=== PATIENT | male | born 1960 | race Caucasian/White ===

== ENCOUNTER 2017-10-23 15:18 | Emergency (ER) | payer OTHER ==
[~2017-10-23] VITALS: Ht 165.1 cm; Wt 65.8 kg
[~2017-10-23 15:18] MED LIST: CIPRO500 MG PO; FLAG500 PO; FLEXERIL10 MG PO; PERCOCET 325 MG1 TA2 PO
[2017-10-23] MEDS ORDERED: PREDNISONE10 M2 PO (16:58)
--- NOTE | 2017-10-23 16:59 | ED SKIN/ALLERGY COMPLAINT ---
History of Present Illness General Chief Complaint: Skin Rash/ Abcess Stated Complaint: POISON SIMONE Source: patient Exam Limitations: no limitations Vital Signs & Intake/Output Vital Signs & Intake/Output Vital Signs Date Time Temp Pulse Resp B/P B/P Pulse O2 O2 Flow FiO2 Mean Ox Delivery Rate 10/23 1706 97.1 95 15 150/85 99 Room Air Room Air 10/23 1526 97.1 102 20 153/89 97 Room Air Allergies Coded Allergies: MDX - PCN (penicillin) (PCN (PENICILLIN)) (UNKNOWN 01/06/12) Reconcile Medications Ciprofloxacin Hydrochloride (Cipro) 500 MG TAB 1 TAB PO BID DIVERTICULITIS CYCLOBENZAPRINE HCL (Flexeril) 10 MG TABLET 1 TAB PO TID MUSCLE RELAXATION Metronidazole (Flagyl) 500 MG TAB 500 MG PO TID DIVERTICULITIS OXYCODONE HCL/ACETAMINOPHEN (Percocet 5-325 MG Tablet) 325 MG/5 MG TAB 1-2 TAB PO Q4-6 PRN PRN PAIN Prednisone 10 MG TABLET 1 DOSE PO ONCE DAILY DERMATIITS 5 TABS X 2 DAYS 4 TABS X 2 DAYS 3 TABS X 2 DAYS 2 TABS X 2 DAYS 1 TAB X 2 DAYS Triage Note: PT TO ED C/O POISON SIMONE SINCE MONDAY. STATES IT IS ON B/L ARMS, NECK AND WAIST. HAS BEEN USING CALAMINE LOTION WITH SOME RELIEF. Triage Nurses Notes Reviewed? yes Onset: Abrupt Duration: day(s): (2), constant, continues in ED, getting worse Timing: recent history Severity: moderate, severe Location: generalized Possible Factors: exposure to allergen No Modifying Factors: none Associated Symptoms: rash HPI: 57-year-old male past medical history of hypertension presents for evaluation of a itchy erythematous rash. The rash is located diffusely in the arms or legs and trunk. It is very itchy. Patient states he was working outside with the rash started. Feels like similar episodes of poison simone. He denies any trouble swallowing trouble breathing or swelling of the lips tongue or throat. No history of anaphylaxis. No fevers or discharge. He's been putting on calamine lotion with some improvement. Past History Travel History Traveled to [place] past 21 day No Medical History Any Pertinent Medical History? see below for history Neurological: NONE EENT: NONE Cardiovascular: hypertension, RBBB Respiratory: NONE Gastrointestinal: NONE Hepatic: NONE Renal: NONE Musculoskeletal: NONE Psychiatric: NONE Endocrine: NONE Blood Disorders: NONE Cancer(s): NONE CHALKER SOLES/Reproductive: NONE Surgical History Surgical History: appendectomy, FATTY TUMOR BACK Psychosocial History What is your primary language Czech Tobacco Use: Quit >30 days ago ETOH Use: denies use Illicit Drug Use: denies illicit drug use Family History Hx Contributory? No Review of Systems Review of Systems Constitutional: Reports: no symptoms. EENTM: Reports: no symptoms. Respiratory: Reports: no symptoms. Cardiovascular: Reports: no symptoms. GI: Reports: no symptoms. Genitourinary: Reports: no symptoms. Musculoskeletal: Reports: no symptoms. Skin: Reports: rash. Neurological/Psychological: Reports: no symptoms. Hematologic/Endocrine: Reports: no symptoms. Immunologic/Allergic: Reports: no symptoms. All Other Systems: Reviewed and Negative Physical Exam Physical Exam General Appearance: well developed/nourished, no apparent distress, alert, awake Head: atraumatic, normal appearance Eyes: Bilateral: normal appearance, EOMI. Ears, Nose, Throat: normal pharynx, normal ENT inspection, hearing grossly normal Neck: normal inspection, supple, full range of motion Respiratory: normal breath sounds, chest non-tender Cardiovascular: regular rate/rhythm, normal peripheral pulses Peripheral Pulses: 2+ radial (R), 2+ radial (L) Gastrointestinal: soft, non-tender Back: normal inspection, normal range of motion Extremities: normal inspection, normal range of motion, no edema Neurologic/Psych: no motor/sensory deficits, awake, alert, oriented x 3, normal gait, normal mood/affect Skin: intact, normal color, warm/dry Skin Problem Location: upper extremities, torso, lower extremities Skin Problem Character: THERE ARE MULTIPLE ERYTHEMATOUS PAPULAR LESIONS IN A LINEAR DISTRIBUTION LOCATED DIFFUSELY ON THE BILATERAL UPPER AND LOWER EXTREMITIES TRUNK AND NECK. tHERE IS NO UNDERLYING ERYTHEMA OR PURULENT DISCHARGE. sOME weeping present. nO PAIN TO PALPATION Lymphatic: no anterior cervical wilfredo Progress Differential Diagnosis: abscess/cellulitis, allergic reaction, anaphylaxis, contact dermatitis, drug reaction, erythema multiforme, piyriasis rosea, scarlet fever, shingles, toxic shock syndrome, urticaria Plan of Care: Patient seen and evaluated. He appears to have contact dermatitis from poison simone. No evidence of anaphylaxis. Patient will be covered with prednisone. Also advised continuing calamine lotion Benadryl as needed. Discussed return precautions including signs of infection patient agrees the plan. Departure Departure Disposition: HOME OR SELF CARE Condition: Stable Clinical Impression Primary Impression: Rhus dermatitis Referrals: Juan J Betancur MD (PCP/Family) Additional Instructions: Keep YOUR skin clean and dry. Take prednisone as directed for the full course. Benadryl for itching. Continue to apply topical calamine lotion. Follow-up with her primary care doctor. Monitor symptoms and return with any concerns. Departure Forms: Customer Survey General Discharge Information Prescriptions: Current Visit Scripts Prednisone 1 DOSE PO ONCE DAILY #1 DP 5 TABS X 2 DAYS 4 TABS X 2 DAYS 3 TABS X 2 DAYS 2 TABS X 2 DAYS 1 TAB X 2 DAYS
[2017-10-23 17:06] VITALS: BP 150/85
== END 2017-10-23 17:06 ==
LOC: ERH 15:18
DX: L23.7 Allergic contact dermatitis due to plants, except food (principal)